=== PATIENT | male | born 1960 | race Caucasian/White ===

== ENCOUNTER 2019-05-12 17:18 | Emergency (ER) | payer MEDICAID, OTHER ==
[~2019-05-12] VITALS: Ht 170.2 cm; Wt 77.3 kg
[~2019-05-12 17:18] MED LIST: ACET-2158 PO; CIPR400P13 IV; CIPR500T4 PO; DOCU-144 PO; METR500T PO; NORC 5-325 PO; PANT40TA4 PO; [UNRECOGNIZED DRUG - CODE] IV
[2019-05-12 17:30] VITALS: RESP 24; Ht 170.2 cm; Wt 77.3 kg
[2019-05-12] MEDS ORDERED: SOD CHLORIDE 0.9% 1,000 ML IV STA (17:30)
[2019-05-12] MEDS ORDERED: ONDANSETRON 4 MG INJ IV STA (17:30)
--- NOTE | 2019-05-12 17:34 | ERD ---
ER Documentation Chief Complaint Chief Complaint HPI 58-year-old male no known past medical history inconsistently for alleged DUI. Presenting with shortness of breath nausea and vomiting.. States this morning he began having mild shortness of breath and several minutes ago began having right upper quadrant abdominal pain with nausea and vomiting. Denies any history of similar. Denies any medical history. He does not take any medications. No recent travel or antibiotics. Has a history of neurosurgery secondary to trauma but no other surgeries. ROS All systems reviewed and are negative except as per history of present illness. Medications Home Meds Active Scripts Metronidazole* (Flagyl* 500MG/NS) 5 Mg/Ml Iv.soln., 500 MG IV Q8 for 11 Days, EA 0 Refills Prov:ASMITA WHYTE. 06/06/14 Ciprofloxacin Lactate/D5w (Cipro I.v. 400 Mg/200 Ml D5w) 400 Mg/0.2 L Piggyback, 400 MG IV Q12 for 11 Days, EA 0 Refills Prov:ASMITA WHYTE. 06/06/14 Docusate Sodium* (Colace*) 100 Mg Capsule, 100 MG PO BID, #60 CAP Prov:ASMITA WHYTE . 06/04/14 Metronidazole* (Flagyl*) 500 Mg Tablet, 500 MG PO Q8 for 21 Days, TAB sTART 06/16/14 Prov:ASMITA WHYTE . 06/04/14 Ciprofloxacin Hcl* (Ciprofloxacin Hcl*) 500 Mg Tablet, 500 MG PO BID for 21 Days, TAB START 06/16/14 Prov:ASMITA WHYTECompa 06/04/14 Pantoprazole (Protonix) 40 Mg Tabec, 40 MG PO DAILY@06, #28 Prov:ASMITA WYHTE. 06/04/14 Acetaminophen (TYLENOL 325 MG TAB) 325 Mg Tab, 650 MG PO Q6H PRN for PAIN AND OR ELEVATED TEMP, #30 TAB Prov:ASMITA WHYTE. 06/04/14 Hydrocodone Bit-Acetaminophen* ([place]*) 1 Tab Tab, 1 TAB PO Q4NARC PRN for PAIN, #30 TAB Prov:ASMITA WHYTE . 06/04/14 Allergies Allergies: Coded Allergies: No Known Drug Allergies (Verified Allergy, Unknown, 8/15/14) PMhx/Soc History of intracranial hemorrhage traumatic neurosurgical evacuation. History of Surgery: Yes Anesthesia Reaction: No Hx Respiratory Disorders: No Hx Cardiac Disorders: No Hx Psychiatric Problems: No Hx Substance Use: No Hx Tobacco Use: No Physical Exam Vitals Vital Signs Date Temp Pulse Resp B/P (MAP) Pulse Ox O2 O2 Flow FiO2 Time Delivery Rate 05/12/19 97.8 98 24 146/91 99 17:30 (109) 05/12/19 Nasal 3 17:25 Cannula Physical Exam Const: No acute distress Head: Atraumatic Eyes: Normal Conjunctiva ENT: Normal External Ears, Nose and Mouth. Neck: Full range of motion. No meningismus. Resp: Clear to auscultation bilaterally Cardio: Regular rate and rhythm, no murmurs Abd: Soft, nontender, non distended. Normal bowel sounds Skin: No petechiae or rashes Back: No midline or flank tenderness Ext: No cyanosis, or edema Neur: Awake and alert Psych: Normal Mood and Affect Result Diagram: 05/12/19 1738 05/12/19 1911 Results 24 hrs Laboratory Tests Test 05/12/19 17:38 05/12/19 19:11 White Blood Count 9.4 10^3/ul Red Blood Count 4.84 10^6/ul Hemoglobin 15.6 g/dl Hematocrit 45.5 % Mean Corpuscular Volume 94.0 fl Mean Corpuscular Hemoglobin 32.2 pg Mean Corpuscular Hemoglobin Concent 34.3 g/dl Red Cell Distribution Width 12.3 % Platelet Count 360 10^3/UL Mean Platelet Volume 9.6 fl Immature Granulocytes % 0.700 % Neutrophils % 63.3 % Lymphocytes % 22.9 % Monocytes % 11.6 % Eosinophils % 1.0 % Basophils % 0.5 % Nucleated Red Blood Cells % 0.0 /100WBC Immature Granulocytes # 0.070 10^3/ul Neutrophils # 5.9 10^3/ul Lymphocytes # 2.2 10^3/ul Monocytes # 1.1 10^3/ul Eosinophils # 0.1 10^3/ul Basophils # 0.1 10^3/ul Nucleated Red Blood Cells # 0.0 10^3/ul Sodium Level 142 mmol/L 143 mmol/L Potassium Level 4.1 mmol/L 5.1 mmol/L Chloride Level 106 mmol/L 108 mmol/L Carbon Dioxide Level 15 mmol/L 22 mmol/L Anion Gap 21 13 Blood Urea Nitrogen 5 mg/dl 5 mg/dl Creatinine 0.82 mg/dl 0.79 mg/dl Est Glomerular Filtrat Rate mL/min > 60 mL/min > 60 mL/min Glucose Level 106 mg/dl 99 mg/dl Calcium Level 9.3 mg/dl 8.5 mg/dl Total Bilirubin 0.3 mg/dl Direct Bilirubin 0.00 mg/dl Indirect Bilirubin 0.3 mg/dl Aspartate Amino Transf (AST/SGOT) 121 IU/L Alanine Aminotransferase (ALT/SGPT) 137 IU/L Alkaline Phosphatase 119 IU/L Troponin I < 0.012 ng/ml Total Protein 7.6 g/dl Albumin 4.5 g/dl Globulin 3.10 g/dl Albumin/Globulin Ratio 1.45 Lipase 251 U/L Current Medications Medications Dose Sig/Rika Start Time Status Last (Trade) Ordered Route PRN Stop Time Admin Dose Reason Admin Sodium 1,000 ml @ Q1H STAT 05/12/19 DC 05/12/19 Chloride 1,000 mls/hr IV 17:30 05/12/19 17:51 18:29 Ondansetron 4 mg ONCE STAT 05/12/19 DC 05/12/19 HCl (Zofran IV 17:30 05/12/19 17:51 Inj) 17:32 Procedures/MDM ECG Time: 1743 Ventricular Rate: 96 Rhythm: normal sinus rhythm. ST Segments: without evidence of depressions or elevations Intervals: without evidence of AV block, new BBB, long QT, Brugada No evidence of delta wave. Patient presents with abdominal pain, nausea and vomiting, has flatus , BM afebrile Patient is well appearing. Non acute abdominal exam. Low suspicion for AAA given no palpable mass. Low suspicion for mesenteric ischemia given pain not out of proportion to exam, and no major risk factors. 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 Patient does have a anion gap and slight acidosis this is likely related to alcohol ketosis. After rehydration with IV fluids chemistry improved gap closed and bicarb normalized. patient is otherwise well-appearing low suspicion for acute bacterial infection, patient is not diabetic low suspicion for DKA. Patient symptoms are improving, vital signs are stable.Patient remains PO tolerant. Serial abdominal exam without increase in abdominal pain. Given exam and history, low suspicion for acute abdominal process, such as acute cholecystitis, pancreatitis, perforated viscus, atypical appendicitis or torsion. Extensive conversation about return precautions and need for follow-up. Departure Diagnosis: Primary Impression: Vomiting Vomiting type: unspecified Vomiting Intractability: non-intractable N ausea presence: with nausea Qualified Codes: R11.2 - Nausea with vomiting, unspecified Condition: Stable JAXSON EDWARDS MD May 12, 2019 17:34
[2019-05-12 20:00] VITALS: BP 150/102; PULSE 74
== END 2019-05-12 20:06 ==
LOC: E/R 17:18
DX: R11.2 Nausea with vomiting, unspecified (principal)
CPT/HCPCS: 71045; 80048; 80053; 83690; 84484; 85025; 93005; 96361; 96374; 99285; J2405; J7030